=== PATIENT | female | born 1995 | race Caucasian/White ===

== ENCOUNTER 2020-08-22 04:35 | Inpatient (IN) | payer OTHER ==
[2020-08-22] MEDS ORDERED: ELECTROLYTE-148 SOLN 1,000 ML IV SCH (05:00)
[2020-08-22] MEDS ORDERED: AMPICILLIN SODIUM 2 GM VIAL ONE (06:17)
[2020-08-22] MEDS ORDERED: BUTORPHANOL TARTRATE 2 MG/ML VIAL ONE (06:17)
[2020-08-22] MEDS ORDERED: PROMETHAZINE HCL 25 MG/1 ML VIAL ONE (06:17)
[2020-08-22] MEDS ORDERED: PROMETHAZINE HCL 25 MG/1 ML VIAL IVPUSH ONE (06:20)
[2020-08-22] MEDS ORDERED: BUTORPHANOL TARTRATE 1 MG/ML VIAL IVPB ONE (06:20)
[2020-08-22] MEDS ORDERED: AMPICILLIN - 2 GM in SODIUM CHLORIDE 100 ML IVPB ONE (06:30)
[2020-08-22 07:42] VITALS: BMI 28.5
[2020-08-22 07:52] LABS: BASO % 0.5 % (0-2.0); HEMATOCRIT 34.6 % (32.4-45.2); HEMOGLOBIN 11.3 GM/dL (10.7-15.3); LYMPH % 12.1 % (8-40); MCH 27.2 pg (25.7-33.7); MCHC 32.6 g/dl (32.0-36.0); MEAN CELL VOLUME 83.4 fl (80-96); MEAN PLT VOLUME 7.8 fl (7.5-11.1); MONO % 4.6 % (3.8-10.2); NEUT % 82.8 % (42.8-82.8); PLATELET COUNT 346 K/MM3 (134-434); RBC 4.15 M/mm3 (3.60-5.2); RDW 14.8 % (11.6-15.6); WHITE BLOOD COUNT 12.3 K/mm3 (4.0-10.0)
[2020-08-22 07:58] LABS: INR 0.92 (0.83-1.09); PROTHROMBIN TIME (PATIENT) 11.2 SEC (9.7-13.0)
[2020-08-22 08:01] LABS: ACTIVATED PTT 27.6 SECONDS (25.2-36.5)
[2020-08-22 08:20] LABS: EPI CELLS 26 /uL (0-25.1); HYALINE CASTS 1 /uL (0-3.1); URINE APPEARANCE TURBID; URINE BACTERIA 987 /uL (0-1359); URINE BILIRUBIN NEGATIVE (NEGATIVE); URINE COLOR YELLOW; URINE GLUCOSE (UA) NEGATIVE (NEGATIVE); URINE KETONE NEGATIVE (NEGATIVE); URINE LEUK ESTERASE TRACE (NEGATIVE); URINE NITRITE NEGATIVE (NEGATIVE); URINE PROTEIN NEGATIVE (NEGATIVE); URINE RBC 3 /uL (0-23.9); URINE UROBILINOGEN 0.2 mg/dL (0.2-1.0); URINE WBC 22 /uL (0-25.8)
[2020-08-22 08:21] LABS: BLOOD UREA NITROGEN 10.5 mg/dL (7-18); CALCIUM 9.3 mg/dL (8.5-10.1); CREATININE 0.6 mg/dL (0.55-1.3); POTASSIUM 4.5 mmol/L (3.5-5.1)
[2020-08-22 08:21] LABS: OPIATES, URI NEGATIVE ng/ml (CUTOFF=300); PHENCYCLIDINE,URINE NEGATIVE ng/ml (CUTOFF=25); URINE BENZODIAZEPINES NEGATIVE ng/ml (CUTOFF=200)
[2020-08-22 08:22] LABS: METHADONE, UR NEGATIVE ng/ml (CUTOFF=300)
[2020-08-22 08:34] LABS: COCAINE, UR NEGATIVE ng/ml (CUTOFF=300); URINE AMPHETAMINES NEGATIVE ng/ml (CUTOFF=500); URINE BARBITURATES NEGATIVE ng/ml (CUTOFF=200)
[2020-08-22] MEDS ORDERED: PCA PUMP NR ONE (08:35)
[2020-08-22] MEDS ORDERED: FENTANYL/BUPIVACAINE/NS/PF - PCEA - 50 ML DISP.SYRIN EP ONE (08:35)
[2020-08-22] MEDS ORDERED: LIDO 2%/EPI 1:200000 PRESRVFRE (20 ML SDVIAL) ONE (08:56)
[2020-08-22] MEDS ORDERED: BUPIVACAINE HCL/PF 0.25% (2.5MG/ML) 10 ML VIAL ONE (08:56)
[2020-08-22] MEDS: FENTANYL/BUPIVACAINE/NS/PF - PCEA - 50 ML DISP.SYRIN EP SCH (09:20)
[2020-08-22] MEDS ORDERED: AMPICILLIN SODIUM 1 GM VIAL ONE ×2 (09:35→14:02)
[2020-08-22] MEDS ORDERED: NALOXONE HCL 0.4 MG/ML VIAL IVPUSH PRN (10:08)
[2020-08-22] MEDS: AMPICILLIN - 1 GM in SODIUM CHLORIDE 100 ML IVPB SCH ×2 (10:30→14:30)
[2020-08-22] MEDS ORDERED: OXYTOCIN 30 UNITS in 0.9% NS 30 UNIT/500 ML INFUS.BAG IVPB SCH (12:00)
[2020-08-22] MEDS ORDERED: LIDOCAINE HCL 1% PRESERVATIVE FREE - 30ML VIAL ONE (12:12)
[2020-08-22] MEDS ORDERED: OXYTOCIN 20 UNITS in 0.9% NS 20 UNIT/1,000 ML INFUS.BAG IV ONE (12:12)
[2020-08-22 12:49] LABS: HIV INTERPRETATION NEGATIVE (NEGATIVE)
[2020-08-22] MEDS ORDERED: IBUPROFEN 600 MG TABLET (FP) PO ONE (16:12)
[2020-08-22] MEDS ORDERED: ACETAMINOPHEN 325 MG TABLET (FP) ONE (16:13)
[2020-08-22] MEDS ORDERED: METHYLERGONOVINE MALEATE 0.2 MG/1 ML AMP IM PRN (16:18)
[2020-08-22] MEDS ORDERED: BISACODYL 10 MG SUPP.RECT RC PRN (16:18)
[2020-08-22] MEDS ORDERED: WITCH HAZEL 50% (TUCKS) 40 PAD/JAR PAD TP PRN (16:18)
[2020-08-22] MEDS ORDERED: BENZOCAINE 20% 57 GM BOTTLE TP PRN (16:18)
[2020-08-22] MEDS ORDERED: BENZOCAINE 28 GM HEMORRHOIDAL OINTMENT TP PRN (16:18)
[2020-08-22 16:23] LABS: CORD HCO3 22.5 mmHg (20-29); CORD PCO2 63.8 mmHg (30-78); CORD pH 7.165 (7.14-7.44)
[2020-08-22 16:26] LABS: CORD BASE EXCESS -9.9 mmol/L (0-2); CORD HCO3 19.1 mmHg (20-29); CORD PCO2 53.5 mmHg (30-78); CORD pH 7.17 (7.14-7.44)
[2020-08-22] MEDS: IBUPROFEN 600 MG TABLET (FP) PO PRN ×2 (16:30→22:25)
[2020-08-22] MEDS ORDERED: OXYTOCIN 20 UNITS in 0.9% NS 20 UNIT/1,000 ML INFUS.BAG IV SCH (16:30)
[2020-08-22] MEDS: ACETAMINOPHEN 325 MG TABLET (FP) PO PRN ×2 (16:30→22:25)
[2020-08-22] MEDS: FERROUS SO4 325 MG TABLET (FP) PO SCH (18:35)
[2020-08-23] MEDS: PRENATAL VITAMINS W/ FOLIC ACID TABLET (FP) PO SCH (09:14)
[2020-08-23] MEDS: FERROUS SO4 325 MG TABLET (FP) PO SCH ×2 (09:14→18:28)
[2020-08-23 09:25] LABS: BASO % 0.5 % (0-2.0); EOS % 0.2 % (0-4.5); HEMATOCRIT 32.3 % (32.4-45.2); HEMOGLOBIN 10.6 GM/dL (10.7-15.3); LYMPH % 19.5 % (8-40); MCH 27.3 pg (25.7-33.7); MCHC 32.9 g/dl (32.0-36.0); MEAN CELL VOLUME 83.1 fl (80-96); MEAN PLT VOLUME 8.4 fl (7.5-11.1); MONO % 4.1 % (3.8-10.2); NEUT % 75.7 % (42.8-82.8); PLATELET COUNT 354 K/MM3 (134-434); RBC 3.89 M/mm3 (3.60-5.2); RDW 14.5 % (11.6-15.6); WHITE BLOOD COUNT 18.4 K/mm3 (4.0-10.0)
[2020-08-23] MEDS ORDERED: SENNOSIDES/DOCUSATE COMBO (SENNA PLUS) TABLET (UD) PO PRN (22:00)
[2020-08-23] MEDS: FENTANYL/BUPIVACAINE/NS/PF - PCEA - 50 ML DISP.SYRIN EP SCH (22:41)
[2020-08-24] MEDS: ACETAMINOPHEN 325 MG TABLET (FP) PO PRN (01:31)
[2020-08-24] MEDS: IBUPROFEN 600 MG TABLET (FP) PO PRN (01:32)
[2020-08-24] MEDS: FERROUS SO4 325 MG TABLET (FP) PO SCH (10:06)
[2020-08-24] MEDS: PRENATAL VITAMINS W/ FOLIC ACID TABLET (FP) PO SCH (10:06)
[2020-08-24 13:33] VITALS: BP 126/75; PULSE 87; TEMP 97.7
== END 2020-08-24 13:00 | disposition home or self-care (01) | DRG 560 ==
LOC: JLDR 04:35 → J3W 17:45
PROVIDERS: ADMIT Obstetrics & Gynecology; ATTEND Obstetrics & Gynecology
PROC: 10E0XZZ Delivery of Products of Conception, External Approach (ICD-10-PCS; principal; 2020-08-22)
PROC: 10907ZC Drainage of Amniotic Fluid, Therapeutic from Products of Conception, Via Natural or Artificial Opening (ICD-10-PCS; 2020-08-22)
PROC: 0W8NXZZ Division of Female Perineum, External Approach (ICD-10-PCS; 2020-08-22)
DX: O77.0 Labor and delivery complicated by meconium in amniotic fluid (principal); Z3A.39 39 weeks gestation of pregnancy; Z37.0 Single live birth; Z86.19 Personal history of other infectious and parasitic diseases
CPT/HCPCS: 36415; 36600; 59409; 80048; 80307; 81003; 82803; 85025; 85610; 85730; 86780; 86850; 86900; 86901; 87389; C9803; U0003

== ENCOUNTER 2022-08-03 16:14 | Emergency (ER) | payer OTHER ==
[2022-08-03 16:42] VITALS: BP 121/63; PULSE 83; RESP 20; TEMP 98; BMI 21.9
== END 2022-08-03 16:51 | disposition home or self-care (01) ==
LOC: FER 16:14
DX: H10.213 Acute toxic conjunctivitis, bilateral (principal); Z77.098 Contact with and (suspected) exposure to other hazardous, chiefly nonmedicinal, chemicals
CPT/HCPCS: 99281-25